=== PATIENT | male | born 2000 | race Caucasian/White ===

== ENCOUNTER 2020-09-24 22:29 | Inpatient (IN) | payer OTHER ==
[~2020-09-24] VITALS: Ht 182.9 cm; Wt 82.6 kg
[2020-09-24 22:51] LABS: HEMATOCRIT 42.8 % (42.0-52.0); HEMOGLOBIN 14.2 g/dl (13.5-17.5); MEAN CORPUSCULAR HEMOGLOBIN 26.9 pg (27.0-33.0); MEAN CORPUSCULAR HGB CONC 33.2 g/dl (32.0-36.5); MEAN CORPUSCULAR VOLUME 81.2 fl (80.0-96.0); PLATELET COUNT, AUTOMATED 268 10^3/uL (150-450); RED BLOOD COUNT 5.27 10^6/uL (4.30-6.10); WHITE BLOOD COUNT 6.9 10^3/uL (4.0-10.0)
[2020-09-24 23:31] LABS: ACETAMINOPHEN LEVEL < 2.0 UG/ML (10.0-30.0); ALBUMIN 4.3 GM/DL (3.2-5.2); ALT/SGPT 56 U/L (12-78); BILIRUBIN,DIRECT < 0.1 MG/DL (0.0-0.2); BILIRUBIN,TOTAL 0.3 MG/DL (0.2-1.0); BLOOD UREA NITROGEN 18 MG/DL (7-18); CALCIUM LEVEL 10.1 MG/DL (8.5-10.1); CARBON DIOXIDE LEVEL 31 MEQ/L (21-32); CHLORIDE LEVEL 104 MEQ/L (98-107); CREATININE FOR GFR 0.99 MG/DL (0.70-1.30); ETHYL ALCOHOL (ETHANOL) < 0.003 % (0.000-0.010); GLUCOSE, FASTING 97 MG/DL (70-100); SALICYLATE LEVEL < 1.7 MG/DL (5.0-30.0); SODIUM LEVEL 140 MEQ/L (136-145); TOTAL PROTEIN 7.6 GM/DL (6.4-8.2)
[2020-09-24 23:33] LABS: AMPHETAMINES LEVEL URINE NEGATIVE (NEGATIVE); BARBITURATES URINE NEGATIVE (NEGATIVE); BENZODIAZEPINES URINE NEGATIVE (NEGATIVE); CANNABINOIDS URINE NEGATIVE (NEGATIVE); COCAINE METABOLITE URINE NEGATIVE (NEGATIVE); METHADONE URINE NEGATIVE (NEGATIVE); OPIATES URINE NEGATIVE (NEGATIVE); PHENCYCLIDINE URINE NEGATIVE (NEGATIVE)
[2020-09-25 06:44] LABS: RSV AMPLIFICATION NEGATIVE (NEGATIVE)
[2020-09-25] MEDS ORDERED: ACETAMINOPHEN TAB 650MG DOSE (2X325MG) PO PRN (13:40)
[2020-09-25] MEDS ORDERED: MAALOX 30 ML SUSP *UDC PO PRN (13:40)
[2020-09-25] MEDS ORDERED: traZODone 50 MG TAB PO PRN (13:40)
[2020-09-25] MEDS ORDERED: MOM 30ML SUSPENSION UDC PO PRN (13:40)
[2020-09-25 15:52] VITALS: BP 117/66
[2020-09-26 06:35] VITALS: BP 139/65
[2020-09-26] MEDS: NICOTINE 21MG/24HR 1 EA TRANSDERMAL TD SCH (08:59)
--- NOTE | 2020-09-26 13:44 | MHHPEPDOC ---
General Date Of Admission: Sep 25, 2020 Legal Status: Chief Complaint "I took a few shrooms and took a bad trip and woke up a 3 hours later. And then found that I cut myself. " History of Present Illness HISTORY OF THE PRESENT ILLNESS: Patient is a 20 -year-old , male, who was admitted on a to [facility] after he was brought in by his chain of command self inflicting superficial cuts to his right wrist with a razor blade. He reports that he had "shrooms" and does not remember cutting himself. 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 He says he holds on to stuff, and the "keg exploded", has a tendency to push down his feelings. Patient was adopted. His other stressor is a recent termination of a long distance relationship of 6 years. He divulged that his Parents were upset with his same -sex relationship with his now ex-boyfriend. He states that all the stressors drove him to use mushrooms and self inflict cuts to his wrist. He states that he blacked out and does not remember cutting himself. His last cut was in middle school where he was constantly bullied. Describes his childhood like " purgatory", explains that "school was hell and home was heaven". He denies being depressed or anxious. Denies history of depression.no current SI/HI,no meds, Denies SI/AH/VH. States that he chews tobacco, drinks alcohol once monthly, drinks energy drink once a day. PER ED REPORT: Pt was brought to the ED by his MARSHAL for a MHE after cutting himself. Pt states that he was sitting on his bed watching a video on his phone & then he "blacked out" & when he came to he noticed that he had made five superficial cuts to his right forearm with a razor that had been sitting on his sink. Pt states that he told his MARSHAL & they brought him to the ED. Pt states that he does not remember cutting himself. He states that he has blacked out before, but only while intoxicated. Pt states that he has been in the [employer] for a year & a half with no deployments. He likes the [employer] & he likes being at [facility]. However, his parents argue with him frequently because they are upset that he enlisted. Pt is unable to identify any other stressors. Pt denies both SI & HI. He denies any Hx of suicide attempts. Pt reports a Hx of cutting but states he last cut six years ago. Pt denies both AH & VH. He does not appear to be psychotic. Pt denies both depression & anxiety, however, told RN that his depression is getting worse. He reports that his concentration, energy levels, sleep, & appetite are normal. Pt is guarded & appears to be minimizing sx's & events prior to arriving in the ED. Pt denies any Hx of mental health dx or TX. Pt denies drug use & his tox screen was negative. Pt states that he drinks alcohol once or twice a month & drinks a 12-pack over 2 days. MARITZA spoke to [facility] ([phone]). He states that pt was engaged & his fianc cheated on him. Since that time pt has seemed to pull back from his pe ers & is not as social as he used to be. He has also seemed "sad." TW informed [facility] that pt. will be admitted/transferred. TW spoke to pt. again after speaking to [facility]. He confirms that he was engaged & his fianc cheated on him last month. He states he "forgot to mention it" to MARITZA, MD, & RN. Psychiatric Review of Systems Depression (2 or more weeks): insomnia/hypersomnia Kimmy (4 or more days of): denies Psychosis: denies PTSD: denies Anxiety: denies Past Psychiatric History Previous Psychiatric Diagnosis: No diagnosis Previous Psychiatric Admissions This is the first admission Suicide Attempts: History of cutting, last time was in Middle School Psychiatric Follow-up: [facility], had counseling when he was younger Psychiatric medications: None. Past Medical History Medical Problems Torn ACL - Right knee 2017 Head Injury: No Seizures: No Hospitalizations: No Surgeries: No Family Medical/Psychiatric HX Psychiatric Disorders: No Addiction: No Suicide Attemps/Completions: No Addiction History nicotine (Chew, 2 years of use), alcohol (occasional, once monthly, no rehab), other (Caffeine - drinks both coffee and energy drinks, drinks espresso shots 2 daily, drinks 1 energy drink daily ) Social History Childhood: Describes childhood "purgatory" Abuse/Trauma: Bullied all through school, ended in high school, Baseball State Title (Shortstop), no history of abuse Current Living Situation: Lives in the [facility] Education: High School Employment: Active duty . Social Support: Poor supports, not a social person Legal: none Marital: single. Confucianism: Use to be Caodaism Relaxation: Run - runs 5 miles in Mental Status Examination General Appearance: appears stated age, hospital scubs/clothing Build: average Demeanor: average Eye Contact: average Activity: average Behavior: cooperative Speech: other (Has a speech impediment) Mood: euthymic Affect: full Thought Process: logical/linear Thought Content (Delusions): none reported Thought Content (Other): guarded Thought Content (Aggressive): none reported Perception (Hallucinations): none reported Perception (Other): none reported Cognition (Impairment of): none reported Cognition(Intelligence Est.): average Oriented: Awake, Alert, Oriented times three Insight: fair Judgment: Fair Psychosis: Denies Diagnoses Adjustment Disorder with mixed disturbances of emotion and conduct. Nicotine use Disorder A-FIB/CHADSVASC A-FIB History Current/History of A-Fib/PAF?: No Current PO Anticoag Therapy: No Age/Risk Factor Scoring CHADSVASC: CHADSVASC Response (Comments) Value Age Risk Factor Age < 65 years old 0 Gender Risk Factor Male 0 Hx of CHF No 0 Hx of HTN No 0 Hx of Stroke/TIA/or VTE No 0 Hx of Diabetes No 0 Hx of Vascular Disease No 0 Total 0 Treatment Treatment ordered: NONE Assessment Assessment Patient seen today . 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 He says he holds on to stuff, and the "keg exploded", has a tendency to push down his feelings. Denies history of depression, no current SI/HI,no meds, Patient was adopted. His other stressor is a recent termination of a long distance relationship of 6 years. His Parents were upset with his same -sex relationship with his now ex-boyfriend. He states that all the stressors drove him to use mushrooms and self inflict cuts to his wrist. He states that he blacked out and does not remember cutting himself. His last cut was in middle school where he was constantly bullied. Describes his childhood like " purgatory", explains that "school was hell and home was heaven". He denies being depressed or anxious. Denies SI/AH/VH. He does not appear psychotic. States that he chews tobacco, drinks alcohol once monthly, drinks energy drink once a day. He is guarded but cooperative. Discussed with him his stressors and coping mechanisms. He appears to need to talk through his feelings. He is not interested in medications. He has a speech impediment (Stuttering). Encouraged him to attend group therapy even if he just sits and listen. Will talk to him again tomorrow and possibly discharge him. Initial Treatment Plan 1. Patient was admitted on a [9.39] status. 2. Complete history was obtained. 3. With patients permission, family will be contacted and database will be expanded. 4. Patients medication regimen will be reviewed and changed accordingly. 5. Patient will be provided with protected environment. 6. Patient will be treated with individual, group, and milieu therapies. 7. Patient will receive supportive psych-education. 8. Discharge planning will commence immediately. 9. Outpatient follow-up treatment will be strongly recommended. 10. The initial treatment plan will focus initially on: Relationship conflicts. Substance use - Mushrooms Risk or suicide ESTIMATED LENGTH OF STAY: 1 to 3 DAYS. TIME SPENT COUNSELING AND COORDINATING INITIAL CARE: 60 minutes. Tobacco Cessation Screen Tobacco Cessation Tx Ordered?: Yes N/A-No Antipsychotics Vital Signs Vital Signs Date Time Temp Pulse Resp B/P (MAP) Pulse Ox O2 Delivery O2 Flow Rate FiO2 09/26/20 06:35 98.7 52 18 139/65 (89) 99 Room Air Medications No Active Prescriptions or Reported Meds Allergies Coded Allergies: No Known Allergies (Unverified , 09/24/20) QI VAZQUEZ NP Sep 26, 2020 09:42
[2020-09-26] MEDS ORDERED: hydrOXYzine 50 MG TAB PO PRN (14:10)
--- NOTE | 2020-09-26 15:30 | HPEPDOC ---
General Date of Admission Sep 25, 2020 at 13:37 Date of Service: Sep 26, 2020 Chief Complaint The patient is a 20-year-old male admitted with a reason for visit of Depressive D/O. 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 Patient reported that he balcked out and while blacked out cut himself. He has several superficial cuts on the right fore arm. He has been having relationship problems with his fiance. He does not have any medical complaints at this time. Home Medications No Active Prescriptions or Reported Meds Allergies Coded Allergies: No Known Allergies (Unverified , 09/24/20) Past Medical History Medical History depression, Cutting Surgical History 4 wisdom teeth removal Family History Patient is adapted Social History * Smoker: non-smoker Alcohol: other (6 beers in a weekend. about 2 week ends a month will also have 4 hard liquor drinks ) Drugs: denies A-FIB/CHADSVASC A-FIB History Current/History of A-Fib/PAF?: No Review of Systems Constitutional: Denies: Chills, Fever, Night Sweats Eyes: Denies: Pain, Vision change ENT: Denies: Head Aches, Ear Pain, Dysphagia Skin: Reports: Other (cuts on right fore arm) Pulmonary: Denies: Dyspnea, Cough Cardiovascular: Denies: Chest Pain, Palpitations, Orthopnea, Paroxysmal Noc. Dyspnea, Lt Headedness Gastrointestinal: Denies: Nausea, Vomiting, Abdominal Pain, Diarrhea Genitourinary: Denies: Dysuria, Frequency, Incontinence, Retention Musculoskeletal: Denies: Neck Pain, Back Pain, Joint Pain, Muscle Pain, Spasms Physical Examination General Exam: Positive: Alert, Cooperative, No Acute Distress Eye Exam: Positive: PERRLA, Conjunctiva & lids normal, EOMI; Negative: Sclera icteric ENT Exam: Positive: Atraumatic, Mucous membr. 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 He is being medically examined here. No acute medical problems at present Depression as per psychiatry Plan / VTE VTE Prophylaxis Ordered?: No CHRIS LANE MD Sep 26, 2020 12:42
[2020-09-26 17:44] VITALS: BP 134/71
[2020-09-27 06:41] VITALS: BP 108/57
[2020-09-27] MEDS: NICOTINE 21MG/24HR 1 EA TRANSDERMAL TD SCH (09:00)
--- NOTE | 2020-09-27 10:01 | MHDSPDOC ---
[facility] Discharge Summary Discharge Summary DATE OF ADMISSION: Sep 25, 2020 at 13:37 DATE OF DISCHARGE: 09/27/2020 0934 DISCHARGE DIAGNOSES: Adjustment Disorder with mixed disturbances of emotion and conduct. 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 He reports that he had "shrooms" and does not remember cutting himself. 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 He says he holds on to stuff, and the "keg exploded", has a tendency to push down his feelings. Patient was adopted. His other stressor is a recent termination of a long distance relationship of 6 years. He divulged that his Parents were upset with his same -sex relationship with his now ex-boyfriend. He states that all the stressors drove him to use mushrooms and self inflict cuts to his wrist. He states that he blacked out and does not remember cutting himself. His last cut was in middle school where he was constantly bullied. Describes his childhood like " purgatory", explains that "school was hell and home was heaven". He denies being depressed or anxious. Denies history of depression.no current SI/HI,no meds, Denies SI/AH/VH. States that he chews tobacco, drinks alcohol once monthly, drinks energy drink once a day. PER ED REPORT: Pt was brought to the ED by his MARSHAL for a MHE after cutting himself. Pt states that he was sitting on his bed watching a video on his phone & then he "blacked out" & when he came to he noticed that he had made five superficial cuts to his right forearm with a razor that had been sitting on his sink. Pt states that he told his MARSHAL & they brought him to the ED. Pt states that he does not remember cutting himself. He states that he has blacked out before, but only while intoxicated. Pt states that he has been in the [employer] for a year & a half with no deployments. He likes the [employer] & he likes being at [place]. However, his parents argue with him frequently because they are upset that he enlisted. Pt is unable to identify any other stressors. Pt denies both SI & HI. He denies any Hx of suicide attempts. Pt reports a Hx of cutting but states he last cut six years ago. Pt denies both AH & VH. He does not appear to be psychotic. Pt denies both depression & anxiety, however, told RN that his depression is getting worse. He reports that his concentration, energy levels, sleep, & appetite are normal. Pt is guarded & appears to be minimizing sx's & events prior to arriving in the ED. Pt denies any Hx of mental health dx or TX. Pt denies drug use & his tox screen was negative. Pt states that he drinks alcohol once or twice a month & drinks a 12-pack over 2 days. MARITZA spoke to [facility] ([phone]). He states that pt was engaged & his fianc cheated on him. Since that time pt has seemed to pull back from his peers & is not as social as he used to be. He has also seemed "sad." TW informed [facility] that pt. will be admitted/transferred. TW spoke to pt. again after speaking to [facility]. He confirms that he was engaged & his fianc cheated on him last month. He states he "forgot to mention it" to MARITZA, MD, & RN. CONSULTANTS INVOLVED: See Medical H + P by Hospitalist TREATMENT AND PROGRESS ON THE UNIT: Patient was admitted to the [facility] on a legal status he was afforded the following treatment modalities: 1) Individual Therapy 2) Group Therapy 3) Medication Management 4) Milieu Therapy 5) Safe Environment HOSPITAL COURSE: Patient was admitted on legal status to [facility]. He declined medication saying he is not Depressed, he had multiple stressors- he was passed over for a promotion for someone less qualified, he recently broke up with his boyfriend, he was verbally fighting with his parents because they did not agree with his same sex relationship and they were upset that he had lost his mariya- Anabaptism. He said the stress lead him to use "shrooms" and cut his wrist. On the initial interview he stated that he was no longer suicidal and was ready for discharge. We encouraged him to stay another day for continual observation. He has been cooperative, interacting with staff and peers. He has been attending group therapy. DISCHARGE ASSESSMENT: In today's interview, patient is alert and oriented. He is appropriately dressed and well-kempt. He says that he is ready for discharge. He reiterates that multiple stressors pushed him to use " shrooms" and cut his wrists. He regrets his actions and says he is not Depressed and does not need medication. He has filled out a safety plan. He states that he has learned new coping techniques from attending in-house group therapy sessions. He names coping skills that he will employ at home when stressed. He states that he has the support of friends and his chain of command. Says he spoke to his parents and explained to them the circumstances that landed him to the hospital and his parents apologized for their contribution to his stress. He states that he feels better after speaking with his parents. We encouraged him to consider counselling post discharge and he is agreeable. Says he will follow up with [facility]. He is in good spirits this morning and is pleasant and engaged in the interview. Denies depression and anxiety. Denies suicidal and homicidal ideation, planning or intent. Denies and is not observed with flory, psychotic symptoms of delusions, bizarre thinking, obsessions, paranoia, ruminations illogical thoughts, flight of ideas or having poor insight and judgement. Patient has normal mentation, declines further hospitalization on a voluntary status and meets criteria for discharge today. Patient encouraged to return to hospital if symptoms worsen or change and encouraged to call unit if he/she/they needs to speak to provider for questions regarding medications or care. MENTAL STATUS EXAMINATION ON DISCHARGE: Patient is a 20-year old male, who appears his stated age. Speech: Is fluid, conversant, normal rate, tone and volume Language skills are intact Thought processes including: linear and goal oriented Thought content: denies depression and anxiety. Denies suicidal/homicidal ideation, planning or intent. Abstract reasoning, and computation: fair Description of associations: denies, none observed Description of abnormal or psychotic thoughts: denies, none observed. Judgment: good Insight: good Orientation: alert and oriented to person, place, time and situation Recent and remote memory: intact Attention span and concentration: good Language: expansive Fund of knowledge: average Mood: Euthymic Mood Affect: reactive MEDICATIONS ON DISCHARGE: See Medication Reconciliation PLAN/FOLLOWUP ARRANGEMENTS: Follow up with Cyndy Amaya . The amount of time spent in the coordination of care for this patient was approximately 25 minutes. ETOH/Disorder Med Rx ETOH/DRUG DISORDER RX: Offrd @ d/c & pt refused Vital Signs/I&Os Vital Signs Date Time Temp Pulse Resp B/P (MAP) Pulse Ox O2 Delivery O2 Flow Rate FiO2 09/27/20 06:41 98.1 61 18 108/57 (74) 97 Room Air Medications No Active Prescriptions or Reported Meds Allergies Coded Allergies: No Known Allergies (Unverified , 09/24/20) QI VAZQUEZ NP Sep 27, 2020 10:01
== END 2020-09-27 12:30 | disposition home or self-care (01) | DRG 882 ==
LOC: M ED 22:29 → M ED INP 09-25 13:37 → M PSY 09-25 15:01
PROVIDERS: ADMIT Psychiatry & Neurology Psychiatry; ATTEND Psychiatry & Neurology Psychiatry
DX: F43.25 Adjustment disorder with mixed disturbance of emotions and conduct (principal); F17.220 Nicotine dependence, chewing tobacco, uncomplicated; Z63.5 Disruption of family by separation and divorce; Z56.89 Other problems related to employment; S61.511A Laceration without foreign body of right wrist, initial encounter; X78.8XXA Intentional self-harm by other sharp object, initial encounter; Y92.003 Bedroom of unspecified non-institutional (private) residence as the place of occurrence of the external cause; F10.10 Alcohol abuse, uncomplicated; F19.10 Other psychoactive substance abuse, uncomplicated; Y93.89 Activity, other specified

== ENCOUNTER 2021-09-06 12:33 | Outpatient (RCR) | payer OTHER | END 2021-10-05 | LOC: M ST 12:33 | PROVIDERS: ATTEND Physician Assistant | DX: R47.9 Unspecified speech disturbances (principal) ==

== ENCOUNTER 2021-12-02 12:43 | Outpatient (RCR) | payer OTHER | END 2021-12-05 | LOC: M ST 12:43 | PROVIDERS: ATTEND Physician Assistant | DX: R47.9 Unspecified speech disturbances (principal) ==